=== PATIENT | male | born 1945 | race Caucasian/White ===

== ENCOUNTER 2016-08-13 22:50 | Emergency (ER) | payer OTHER ==
[~2016-08-13] VITALS: Ht 177.8 cm; Wt 107.2 kg
[2016-08-13 23:09] VITALS: TEMP 36.5; Ht 177.8 cm; Wt 107.2 kg
[2016-08-13] MEDS ORDERED: OXYMETAZOLINE HCL 0.05% NA SPR 15 ML BTL ONE (23:25)
--- NOTE | 2016-08-14 00:01 | EMERGENCY ROOM VISIT NOTE ---
History Report prepared by William: Maribell Iglesias Under the Supervision of: Dr. Delmis Chisholm D.O. First contact with patient: 23:37 Chief Complaint: NOSE BLEED (MINOR) Stated Complaint: NOSE BLEED UNABLE TO STOP History of Present Illness The patient is a 71 year old male who presents to the Emergency Room with complaints of a persistent epistaxis that began around 2129 this evening. 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 He states that after much testing, he was placed on Eliquis. The patient states that he was taken off of the Eliquis due to his DVT and PEs clearing. He notes that in January he developed left cheek numbness and finger numbness. The patient states that he was thought to have a TIA. He notes that a couple weeks later he developed left sided numbness. 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 He notes that he is currently on 750 mg twice per day. The patient associates fatigue with his symptoms today. He states that today he has passed clots with his epistaxis. The patient states that he is currently on 81 mg of aspirin daily and denies being on Plavix any longer. He denies any abdominal pain or leg pain or cramping. Source of History: patient Onset: 2129 this evening Position: nose Quality: other (epistaxis) Timing: other (persistent) Associated Symptoms: No abdominal pain Review of Systems See HPI for pertinent positives & negatives. A total of 10 systems reviewed and were otherwise negative. Past Medical & Surgical Medical Problems: (1) DVT (deep venous thrombosis) (2) Pulmonary embolism Surgical Problems: (1) History of total right knee replacement Family History No pertinent family history stated. Social History Smoking Status: Never Smoker Marital Status: Housing Status: lives with significant other Occupation Status: retired Physical Exam Vital Signs Date Time Temp Pulse Resp B/P Pulse Ox O2 Delivery O2 Flow Rate FiO2 08/14/16 00:59 70 18 142/70 94 08/14/16 00:16 61 119/69 92 Room Air 08/13/16 23:09 36.5 67 20 100 Room Air Physical Exam HEENT: Head - normocephalic and atraumatic Pupils are equal, round, and reactive to light. Extraocular eye muscles are intact, and sclera are anicteric. Nose - small area of excoriation in left naris on the septum. Mouth - moist buccal mucosa. Oropharynx has a small amount of dry blood in posterior oropharynx. nonerythematous and there is no tonsillar exudate or edema noted. Neck: Supple; no JVD, nuchal rigidity, cervical lymphadenopathy. Heart: Regular rate and rhythm. There is a normal S1 and S2 with no murmurs, clicks, or gallops appreciated. Lungs: Clear to auscultation bilaterally with no wheezes, rales, or rhonchi. Abdomen: Soft, completely nontender, nondistended, with good bowel sounds. There are no palpable pulsatile masses or hepatosplenomegaly. There is no guarding, rigidity, or rebound noted. Extremities: No evidence of cyanosis, clubbing, or edema. There are easily palpable peripheral pulses. Skin: warm and dry with good turgor and no rashes. Medical Decision & Procedures Medications Administered Medications (Trade) Dose Ordered Sig/Fidencio Route Start Time Stop Time Status Last Admin Dose Admin Oxymetazoline HCl (Afrin 0.05% Nasal [place]) 75 sprays STK-MED ONCE .ROUTE 08/13/16 23:25 08/13/16 23:26 DC 08/13/16 23:31 75 SPRAYS ED Course 2325: Ordered oxymetazoline HCl 75 sprays .route/ 2345: Past medical records reviewed. The patient was evaluated in room B7. A complete history and physical exam was performed. 0031: I reevaluated the patient and he is doing well. I discussed all the exam findings with him and I discussed the treatment plan. He verbalized complete understanding and agreement. He is ready to go home. Medical Decision The patient is a 71 year old male who presents to the ED with an epistaxis. Differential diagnosis includes hypertension, epistaxis. The patient had some bleeding from the left nares. Nursing staff had used Afrin nasal spray and placed a nasal clamp. By the time I saw the patient, the bleeding had stopped. He was observed here in the emergency department for a period of time and the bleeding did not restart. The patient was encouraged to hold pressure if the bleeding started again. Impression Primary Impression: Epistaxis Scribe Attestation The scribe's documentation has been prepared under my direction and personally reviewed by me in its entirety. I confirm that the note above accurately reflects all work, treatment, procedures, and medical decision making performed by me. Departure Information Dispostion Home / Self-Care Referrals No Doctor, Assigned (PCP) Forms HOME CARE DOCUMENTATION FORM, IMPORTANT VISIT INFORMATION, WORK / SCHOOL INSTRUCTIONS Patient Instructions [facility] Additional Instructions If the bleeding starts again, hold pressure for 20 minutes Do not blow your nose for next 24-48 hours You may use Afrin once- 2 sprays to left nostril if needed for recurrent bleeding
[2016-08-14 00:59] VITALS: BP 142/70; PULSE 70; O2SAT 94
== END 2016-08-14 01:00 | disposition home or self-care (01) ==
LOC: C.EDB 22:53
DX: R04.0 Epistaxis (principal); R53.83 Other fatigue; Z79.82 Long term (current) use of aspirin; Z79.899 Other long term (current) drug therapy; Z86.711 Personal history of pulmonary embolism; Z86.718 Personal history of other venous thrombosis and embolism